=== PATIENT | male | born 2000 | race Hispanic/Latino ===

== ENCOUNTER 2019-06-21 23:15 | Emergency (ER) | payer SELFPAY ==
[2019-06-21 23:26] LABS: #Basophils 0.1 thou/uL (0.0-0.2); #Lymphocytes 4.7 thou/uL (1.20-3.40); #Monocytes 0.8 thou/uL (0.11-0.59); #Neutrophils 5.2 thou/uL (1.40-6.50); %Basophils 1.2 % (0.0-1.0); %Eosinophils 8.2 % (0.0-10.0); %Lymphocytes 40.1 % (28.0-48.0); %Monocytes 6.3 % (0.0-4.0); %Neutrophils 44.2 % (31.0-61.0); Hemoglobin 16.2 g/dL (14.0-18.0); Mean Corpuscular HGB CONC 34.7 g/dL (32.0-36.0); Mean Corpuscular Hemoglobin 32.1 pg (25.0-35.0); Mean Corpuscular Volume 92.7 fL (78.0-98.0); Mean Platelet Volume 8.6 fL (7.4-10.4); Platelet Count 229 thou/uL (130-400); RBC Distribution Width 11.9 % (11.5-14.5); Red Blood Cell (RBC) Count 5.04 mill/uL (4.00-5.20); White Blood Cell (WBC) Count 11.8 thou/uL (4.8-10.8)
--- NOTE | 2019-06-21 23:35 | RAD ---
Chest one view HISTORY: Dyspnea. FINDINGS: Cardiac silhouette is magnified by projection. Pulmonary vasculature are unremarkable. Medi astinum is midline. No lobar consolidation or evidence of pneumothorax. IMPRESSION: Normal exam.
[2019-06-21 23:48] LABS: Acetaminophen Less than 6.0 mcg/mL (10.0-30.0); Alcohol 191 mg/dL (Less than 10); Salicylate Less than 8.0 mg/dL (15.0-30.0)
[2019-06-21 23:49] LABS: ALT (SGPT) 17 U/L (8-55); AST (SGOT) 19 U/L (5-34); Alkaline Phosphatase 102 U/L (50-130); Anion Gap 15 mmol/L (10-20); BUN (Urea Nitrogen) 9 mg/dL (8.9-20.6); Bilirubin, Total 0.3 mg/dL (0.2-1.2); Calc. Creatinine Clearance 0 mL/min (70-130); Calcium 9.7 mg/dL (7.8-10.44); Carbon Dioxide 23 mmol/L (22-29); Chloride 110 mmol/L (98-107); Estimated GFR-MDRD Greater than 90; Globulin 3.2 g/dL (2.4-3.5); Glucose 85 mg/dL (70-105); Potassium 3.7 mmol/L (3.5-5.1); Protein, Total 8.2 g/dL (6.0-8.3); Sodium 144 mmol/L (136-145)
[2019-06-22 00:07] LABS: Bacteria/HPF None Seen HPF (None Seen); Bilirubin Negative (Negative); Blood, Urine Trace (Negative); Clarity Clear (Clear); Glucose, Urine (Dipstick) Normal (Negative); Leukocyte Negative Leu/uL (Negative); Nitrite Negative (Negative); Protein, Urine (Dipstick) Negative (Neg-Trace); RBC/HPF 0-3 HPF (0-3); Squamous Epithelial None Seen HPF (0-3); Urobilinogen Normal mg/dL (Less than 2); WBC/HPF 0-3 HPF (0-3)
[2019-06-22 00:13] LABS: Amphetamine Not Detected (NotDetected); Barbiturates Screen Not Detected (NotDetected); Benzodiazepine Screen Not Detected (NotDetected); Cocaine Metabolite Screen Not Detected (NotDetected); Medtox Control Line Valid? VALID (VALID); Medtox Reader # READER 4; Methadone Not Detected (NotDetected); Methamphetamine Not Detected (NotDetected); Opiate Screen Not Detected (NotDetected); Oxycodone Screen Not Detected (NotDetected); Phencyclidine (PCP) Not Detected (NotDetected); THC/Cannabinoid Screen Not Detected (NotDetected); Tricyclic Screen Not Detected (NotDetected)
--- NOTE | 2019-06-25 15:03 | EKG ---
Test Reason : Blood Pressure : / mmHG Vent. Rate : 086 BPM Atrial Rate : 086 BPM P-R Int : 140 ms QRS Dur : 080 ms QT Int : 354 ms P-R-T Axes : 065 041 038 degrees QTc Int : 423 ms Sinus rhythm with marked sinus arrhythmia Otherwise normal ECG Confirmed by EUNICE MOULTON ([id number]), design editor ELIZABETH LEUNG ([id number] on 06/25/2019 3:03:07 PM Referred By: Confirmed By:EUNICE MOULTON
== END 2019-06-22 04:37 | disposition home or self-care (01) ==
LOC: ERS 23:15
DX: F10.129 Alcohol abuse with intoxication, unspecified (principal); Y90.6 Blood alcohol level of 120-199 mg/100 ml
CPT/HCPCS: 51701; 71045; 80053; 80306; 80307; 81003; 81015; 85025; 93005; 96360; 96361